=== PATIENT | male | born 1960 | race Caucasian/White ===

== ENCOUNTER 2022-04-08 21:55 | Emergency (ER) | payer BC, OTHER ==
[2022-04-08] MEDS ORDERED: Sodium Chloride 0.9% 10 ML Syringe FLUSH PRN (22:22)
[2022-04-08 23:10] LABS: ESTIMATED GFR 101 mL/min (>60)
[2022-04-08] MEDS ORDERED: Magnesium Sulfate/Water 4 GM in Premix Bag 1 BAG IV ONE (23:25)
[2022-04-08] MEDS ORDERED: Sodium Chloride 3% 100 ML IV SCH (23:45)
[2022-04-09] MEDS ORDERED: Iopamidol 612 MG/ML 100 ML Bottle IVPUSH ONE (00:22)
[2022-04-09 00:40] LABS: CORONAVIRUS COVID-19 NAA NEGATIVE (NEGATIVE)
[2022-04-09] MEDS ORDERED: Sodium Chloride 3% 100 ML IV SCH (01:15)
== END 2022-04-09 03:40 ==
LOC: JD.ED 21:55
DX: R41.0 Disorientation, unspecified (principal); E87.1 Hypo-osmolality and hyponatremia; E87.6 Hypokalemia; R91.8 Other nonspecific abnormal finding of lung field; E83.42 Hypomagnesemia; I10 Essential (primary) hypertension; J44.9 Chronic obstructive pulmonary disease, unspecified; N40.0 Benign prostatic hyperplasia without lower urinary tract symptoms; Z88.0 Allergy status to penicillin; Z88.2 Allergy status to sulfonamides; Z88.8 Allergy status to other drugs, medicaments and biological substances; Z79.899 Other long term (current) drug therapy; Z86.16 Personal history of COVID-19; Z20.822 Contact with and (suspected) exposure to COVID-19
CPT/HCPCS: 0241U; 36415; 70450; 71045; 71260; 80053; 80306; 80307; 81001; 82140; 82947; 83605; 83735; 83880; 84295; 84443; 84484; 85025; 85379; 86140; 87040; 93005; 96365; 96366; 99285; J3475; J3490; J7131; 93010; 99284